=== PATIENT | male | born 1980 | race Caucasian/White ===

== ENCOUNTER 2022-02-13 11:11 | Emergency (ER) | payer OTHER ==
[~2022-02-13] VITALS: Ht 182.9 cm; Wt 116.0 kg
[2022-02-13 11:22] VITALS: BP 142/87
[2022-02-13] MEDS ORDERED: KETOROLAC 60 MG/2 ML VIAL. IM ONE (11:30)
[2022-02-13] MEDS ORDERED: ORPHENADRINE CITRATE 60 MG/2 ML VIAL. IM ONE (11:30)
--- NOTE | 2022-02-13 11:33 | PHYS DOC ---
General Adult EDM: Chief Complaint: BACK PAIN - NO INJURY HPI: HPI: Patient is a 41-year-old male who presents to the emergency department with bilateral low back pain worse on the right started this morning. Patient reports that he did go to the gym and did squats this morning and had some tightness in his back but when he tried to bend over to reach and pick something up off the ground he noticed worsening of his pain. Currently at rest he rates his pain 4 out of 10. He reports that it is worse with movement. No radiation of pain. Took Aleve this morning for his pain. He denies fevers, loss of bowel or bladder, saddle anesthesias, neck pain, injury. Review of Systems: Review of Systems: Constitutional: See HPI HENT: See HPI GI: See HPI : See HPI Musculoskeletal: See HPI Neurologic: See HPI Physical Exam: PE: Constitutional: Well developed, well nourished, no acute distress, non-toxic appearance. [] HENT: Normocephalic, atraumatic, bilateral external ears normal, oropharynx moist, no oral exudates, nose normal. [] Eyes: PERRL, EOMI, conjunctiva normal, no discharge. [] Neck: Normal range of motion, no bony spinal tenderness, no step-offs or de formities, supple, no stridor. [] Cardiovascular: Normal peripheral perfusion Lungs & Thorax: Normal work of breathing, no tachypnea Abdomen: Soft and flat Skin: Warm, dry, no erythema, no rash. [] Back: No bony spinal tenderness, no CVA tenderness, no paraspinal tenderness wi th palpation. [] Extremities: No tenderness, no cyanosis, no clubbing, ROM intact, no edema. [] Neurologic: Alert and oriented X 3, normal motor function, normal sensory function, no focal deficits noted. [] Psychologic: Affect normal, judgement normal, mood normal. [] Current Patient Data: Labs: Laboratory Tests Test 02/13/22 12:52 Urine Collection Type Clean catch Urine Color Yellow Urine Clarity Clear Urine pH 6.5 Urine Specific [place] 1.025 Urine Protein Neg Urine Glucose (UA) Neg mg/dL Urine Ketones (Stick) Neg mg/dL Urine Blood Neg Urine Nitrite Neg Urine Bilirubin Neg Urine Urobilinogen Dipstick 0.2 mg/dL Urine Leukocyte Esterase Neg Urine RBC 0 /HPF Urine WBC 0 /HPF Urine Squamous Epithelial Cells Occ /LPF Urine Bacteria 0 /HPF Current Medications Medications (Trade) Dose Ordered Sig/Bj Route PRN Reason Start Time Stop Time Status Last Admin Dose Admin Ketorolac Tromethamine (Toradol Im) 60 mg 1X ONCE IM 02/13/22 11:30 02/13/22 11:42 DC 02/13/22 12:20 Orphenadrine Citrate (Norflex) 60 mg 1X ONCE IM 02/13/22 11:30 02/13/22 11:42 DC 02/13/22 12:27 EKG: EKG: [] Radiology/Procedures: Radiology/Procedures: []PROCEDURE: CT LUMBAR SPINE WO CONTRAST CT LUMBAR SPINE WO History:Reason: low back pain-PAIN STARTED THIS AM- PAIN MORE ON LEFT SIDE. / Spl. Instructions: / History: Technique: Noncontrast CT was performed of the lumbar spine. Multiplanar reconstructions were performed. Exposure: One or more of the following individualized dose reduction techniques were utilized for this examination: 1. Automated exposure control 2. Adjustment of the mA and/or kV according to patient size 3. Use of iterative reconstruction technique. Comparison: None Findings: Nonobstructing right intrarenal calculus. Colonic diverticulosis. Straightening of the lumbar spine. No acute fracture. L4 and L1 superior endplate Schmorl's nodes. T12-L1: No canal or neuroforaminal narrowing. L1-L2: Minimal disc bulge. No canal or neuroforaminal narrowing. L2-L3: No canal or neuroforaminal narrowing. Mild facet arthropathy. L3-L4: Minimal disc bulge. Mild facet arthropathy. No canal or neuroforaminal narrowing. L4-L5: Small broad-based disc bulge. Mild facet arthropathy. No canal narrowing. Subarticular recess narrowing. Moderate right neuroforaminal narrowing. L5-S1: Small broad-based disc bulge. Moderate facet arthropathy. No canal harvinder rowing. Subarticular recess, left greater than right. No neuroforaminal narrowing. Impression: 1. Multilevel lumbar spondylosis most prominent L4-5. 2. Moderate right L4-L5 neuroforaminal narrowing. 3. Nonobstructing right intrarenal calculus. Electronically signed by: Camden Jernigan DO (02/13/2022 12:21 PM) [id number] DICTATED AND SIGNED BY: CAMDEN JERNIGAN DO DATE: 02/13/22 1217 CC: SHANI GOODE MD; HERIBERTO MOROCHO APRN ~ Heart Score: C/O Chest Pain: N/A Risk Factors: Risk Factors: DM, Current or recent (<one month) smoker, HTN, HLP, family history of CAD, obesity. Risk Scores: Score 0 - 3: 2.5% MACE over next 6 weeks - Discharge Home Score 4 - 6: 20.3% MACE over next 6 weeks - Admit for Clinical Observation Score 7 - 10: 72.7% MACE over next 6 weeks - Early Invasive Strategies Course & Med Decision Making: Course & Med Decision Making Pertinent Labs and Imaging studies reviewed. (See chart for details) [] Patient presents to the emergency department for bilateral lower back pain. Imaging was performed of patient's lumbar spine that showed disc bulges patient is neurovascularly intact.. Patient treated with anti-inflammatory and muscle relaxer. Patient reports improvement in symptoms following this. Patient be discharged home with muscle relaxer. He is advised to take NSAIDs, dc with steroid dose pack-patient is not a diabetic. I discussed with patient all findings and diagnostic testing as well as the need to follow-up with PCP for further evaluation and treatment or return to the ER if any new or worsening symptoms. Strict return precautions were also discussed at length. Patient voiced understanding and agreement with the plan. Patient is hemodynamically stable at the time of disposition. Dragon Disclaimer: Quique Disclaimer: This electronic medical record was generated, in whole or in part, using a voice recognition dictation system. Departure Departure: Impression: Primary Impression: Back pain Qualified Codes: M54.50 - Low back pain, unspecified Disposition: HOME / SELF CARE / HOMELESS Condition: GOOD Referrals: SHANI GOODE MD (PCP) Patient Instructions: Back Pain, Adult Additional Instructions: You were seen in the emergency department today for back pain. You do have disc bulging. Treatment for your back pain is anti-inflammatory medications like ibuprofen or naproxen and a muscle relaxer. Caution using muscle relaxer as it may cause sedation. Do not take this medication you need to be alert, driving a vehicle or with alcohol. Follow-up with your primary care provider tomorrow regarding your ER visit. Return to the emergency department if you develop worsening of your back pain, inability to bear weight or walk, loss of bowel or bladder, numbness or tingling in your groin or down your legs, high fevers refractory to treatment or any new or worsening concerns. Scripts Cyclobenzaprine Hcl (CYCLOBENZAPRINE HCL) 5 Mg Tablet 1 TAB PO TID for muscle spasm for 7 Days, #21 TAB 0 Refills Prov: HERIBERTO MOROCHO APRN 02/13/22 Methylprednisolone (MEDROL) 4 Mg Tab.ds.pk 1 PKG PO UD for inflammation, #1 PKG 0 Refills Prov: HERIBERTO MOROCHO APRN 02/13/22 HERIBERTO MOROCHO APRN Feb 13, 2022 11:33
--- NOTE | 2022-02-13 12:23 | RAD ---
CT LUMBAR SPINE WO History:Reason: low back pain-PAIN STARTED THIS AM- PAIN MORE ON LEFT SIDE. / Spl. Instructions: / H istory: Technique: Noncontrast CT was performed of the lumbar spine. Multiplanar reconstructions were perform ed. Exposure: One or more of the following individualized dose reduction techniques were utilized for thi s examination: 1. Automated exposure control 2. Adjustment of the mA and/or kV according to patient size 3. Use of iterative reconstruction technique. Comparison: None Findings: Nonobstructing right intrarenal calculus. Colonic diverticulosis. Straightening of the lumbar spine. No acute fracture. L4 and L1 superior endplate Schmorl's nodes. T12-L1: No canal or neuroforaminal narrowing. L1-L2: Minimal disc bulge. No canal or neuroforaminal narrowing. L2-L3: No canal or neuroforaminal narrowing. Mild facet arthropathy. L3-L4: Minimal disc bulge. Mild facet arthropathy. No canal or neuroforaminal narrowing. L4-L5: Small broad-based disc bulge. Mild facet arthropathy. No canal narrowing. Subarticular recess narrowing. Moderate right neuroforaminal narrowing. L5-S1: Small broad-based disc bulge. Moderate facet arthropathy. No canal narrowing. Subarticular re cess, left greater than right. No neuroforaminal narrowing. Impression: 1. Multilevel lumbar spondylosis most prominent L4-5. 2. Moderate right L4-L5 neuroforaminal narrowing. 3. Nonobstructing right intrarenal calculus. Electronically signed by: Camden Cerda DO (02/13/2022 12:21 PM) [id number]
[2022-02-13 13:21] LABS: BACTERIA,URINE 0 /HPF (0-FEW); CLARITY,URINE CLEAR; COLOR,URINE YELLOW; GLUCOSE,URINE NEG (NEG); NITRITE,URINE NEG (NEG); RBC,URINE 0 /HPF (0-2); SQUAMOUS EPITHELIAL CELL,UR OCC /LPF; UROBILINOGEN,URINE 0.2 mg/dL (0.2 mg/dL); WBC,URINE 0 /HPF (0-4)
[2022-02-13] MEDS ORDERED: METH4TAB2 PO (13:28)
[2022-02-13] MEDS ORDERED: CYCL5TAB PO (13:28)
== END 2022-02-13 13:40 | disposition home or self-care (01) ==
LOC: ER 11:11
DX: M54.59 Other low back pain (principal)
CPT/HCPCS: 72131; 81001; 96372; 99284; J1885; J2360